=== PATIENT | male | born 1950 | race Caucasian/White ===

== ENCOUNTER 2024-11-22 16:42 | Emergency (ER) | payer MEDICARE, BC ==
[2024-11-22] MEDS ORDERED: Albuterol/Ipratropium 3.0-0.5 MG/3 ML Neb Soln ONE (16:47)
[2024-11-22] MEDS: Albuterol/Ipratropium 3.0-0.5 MG/3 ML Neb Soln NEB ONE (16:55)
[2024-11-22] MEDS: methylPREDNISolone Sodium Succinate 125 MG/2 ML SDV IVPUSH ONE (16:56)
[2024-11-22 17:00] LABS: BASOPHILS PERCENT AUTO 0.1 % (0.0-1.0); EOSINOPHILS PERCENT AUTO 0.1 % (1.0-3.0); HEMATOCRIT 44.3 % (40.0-54.0); HEMOGLOBIN 13.6 g/dL (14.0-18.0); LYMPHOCYTES PERCENT AUTO 5.4 % (20.5-50.1); MEAN CORPUSCULAR HEMOGLOBIN 31.3 pg (27.0-34.0); MEAN CORPUSCULAR HGB CONC 30.7 g/dL (33.0-35.0); MEAN CORPUSCULAR VOLUME 101.8 fL (80-100); MONOCYTES PERCENT AUTO 14.1 % (2-8); NEUTROPHILS PERCENT AUTO 80.3 % (42.2-75.2); PLATELET COUNT,PLT 131 10^3/uL (150-450); RED BLOOD CELL COUNT 4.35 10^6/uL (4.6-6.2); WHITE BLOOD CELL COUNT,WBC 7.7 10^3/uL (5.0-10.0)
[2024-11-22] MEDS ORDERED: Albuterol 0.083% 2.5 MG/3 ML Neb Soln NEB ONE (17:16)
[2024-11-22 17:25] LABS: A/G RATIO 0.41; ALANINE AMINOTRANSFERASE,ALT 26 U/L (16-63); ALBUMIN 2.4 g/dL (3.4-5.0); ALKALINE PHOSPHATASE 76 U/L (46-116); ANION GAP 6.7 mEq/L (7-13); ASPARTATE AMNIOTRANSFERASE,AST 16 U/L (15-37); BILIRUBIN DIRECT 0.1 mg/dL (0.0-0.2); BILIRUBIN INDIRECT 0.2; BILIRUBIN TOTAL 0.3 mg/dL (0.2-1.0); BLOOD UREA NITROGEN,BUN 25 mg/dL (7-18); CALCIUM 9.7 mg/dL (8.5-10.1); CHLORIDE,CL 93 mmol/L (98-107); CREATININE 0.78 mg/dL (0.70-1.30); ESTIMATED GFR 95 mL/min (>=60); GLUCOSE RANDOM 142 mg/dL (70-99); POTASSIUM,K 5.7 mmol/L (3.5-5.1); PROTEIN TOTAL,TP 8.3 g/dL (6.4-8.2); SODIUM,NA 137 mmol/L (136-145)
[2024-11-22] MEDS: Albuterol 0.083% 2.5 MG/3 ML Neb Soln ONE (17:25)
[2024-11-22 17:27] LABS: CARBON DIOXIDE,CO2 43 mmol/L (21-32)
[2024-11-22 17:35] LABS: B-TYPE NATRIURETIC PEPTIDE,BNP 109 pg/ml (0-100)
[2024-11-22] MEDS: cefTRIAXone 1 GM Vial IVPUSH ONE (18:07)
[2024-11-22] MEDS: Azithromycin 500 MG in Sodium Chloride 0.9% 250 ML IV ONE (18:07)
[2024-11-22] MEDS: Oseltamivir 75 MG Cap PO ONE (18:43)
[2024-11-22] MEDS: Morphine 2 MG/ML SYRINGE IVPUSH ONE (19:20)
== END 2024-11-22 19:38 ==
LOC: DL.ED 16:42
DX: J10.00 Influenza due to other identified influenza virus with unspecified type of pneumonia (principal); J18.1 Lobar pneumonia, unspecified organism; J44.1 Chronic obstructive pulmonary disease with (acute) exacerbation; I10 Essential (primary) hypertension; E78.00 Pure hypercholesterolemia, unspecified; Z90.49 Acquired absence of other specified parts of digestive tract; Z79.899 Other long term (current) drug therapy
CPT/HCPCS: 36415; 71045; 80048; 80076; 83880; 84484; 85025; 87040; 87077; 87186; 87428; 94640; 96365; 96375; 99285; A9270; J0456; J0696; J2270; J2919; J7050; J7613-GY; J7620-GY